=== PATIENT | female | born 1965 | race Caucasian/White ===

== ENCOUNTER 2016-07-25 02:50 | Emergency (ER) | payer OTHER ==
[~2016-07-25] VITALS: Ht 165.1 cm; Wt 72.5 kg
[~2016-07-25 02:50] MED LIST: IBUP-40 PO
[2016-07-25 02:53] VITALS: Ht 165.1 cm; Wt 72.5 kg
[2016-07-25] MEDS ORDERED: SOD CHLORIDE 0.9% 1,000 ML IV STA (03:29)
[2016-07-25] MEDS ORDERED: ONDANSETRON 4 MG INJ IV STA (03:29)
[2016-07-25] MEDS ORDERED: HYDROmorphONE 1 MG/ML SYG IV STA (03:29)
[2016-07-25 03:43] LABS: ADD SCAN DIFF NO
[2016-07-25 04:02] LABS: BASOPHILS % 0.7 % (0.0-2.0); EOSINOPHILS # 0.1 10^3/ul (0.0-0.5); HEMATOCRIT 38.3 % (37.0-47.0); HEMOGLOBIN 13.6 g/dl (12.0-16.0); LYMPHOCYTES # 2.1 10^3/ul (0.8-2.9); LYMPHOCYTES % 34.8 % (15.0-51.0); MEAN CORPUSCULAR HEMOGLOBIN 31.1 pg (29.0-33.0); MEAN CORPUSCULAR HGB CONC 35.5 g/dl (32.0-37.0); MEAN CORPUSCULAR VOLUME 87.4 fl (82.0-101.0); MEAN PLATELET VOLUME 9.9 fl (7.4-10.4); MONOCYTE # 0.5 10^3/ul (0.3-0.9); MONOCYTES % 7.8 % (0.0-11.0); NEUTROPHIL # 3.4 10^3/ul (1.6-7.5); NEUTROPHILS % 54.5 % (39.0-77.0); PLATELET COUNT 202 10^3/UL (140-415); RED BLOOD COUNT 4.38 10^6/ul (4.20-5.40); RED CELL DISTRIBUTION WIDTH 11.7 % (11.5-14.5); WHITE BLOOD COUNT 6.2 10^3/ul (4.8-10.8)
[2016-07-25 04:09] LABS: ALBUMIN 4.4 g/dl (3.3-4.9); ALBUMIN/GLOBULIN RATIO 1.46; BILIRUBIN,INDIRECT 0.2 mg/dl (0-1.1); BILIRUBIN,TOTAL 0.2 mg/dl (0.2-1.3); CALCIUM 9.5 mg/dl (8.4-10.2); CREATININE 0.56 mg/dl (0.44-1.00); POTASSIUM 3.3 mmol/L (3.5-5.1); TOTAL PROTEIN 7.4 g/dl (6.1-8.1)
--- NOTE | 2016-07-25 04:53 | RADRPT ---
PROCEDURE: US abdomen limited right upper quadrant. CLINICAL INDICATION: Abdominal pain TECHNIQUE: Multiple real-time images were acquired of the patient's right upper quadrant of the [facility] utilizing a high resolution transducer. COMPARISON: None FINDINGS: Multiple gallstones are seen in the gallbladder including in the gallbladder neck region. There is no pericholecystic fluid or gallbladder wall thickening. The common bile duct measures 3.6 mm in maximal dimension. No free fluid is identified. No abnormality is seen in the liver. The pancreas is not seen due to b owel gas. The right kidney measures 10.5 cm in length and is unremarkable. IMPRESSION: Pancreas not seen. Cholelithiasis with multiple gallstones in the gallbladder including in the gallb ladder neck region. RPTAT: HJES .Bryson Dodge MD, Date Time Electronically viewed and signed by .Bryson Dodge MD, on 07/25/2016 04:53 .S/
[2016-07-25] MEDS ORDERED: HYDR-902 PO (05:26)
[2016-07-25] MEDS ORDERED: DICY10CA60 PO (05:26)
[2016-07-25] MEDS ORDERED: ONDA4TAB14 PO (05:26)
--- NOTE | 2016-07-25 05:28 | ERD ---
ER Documentation Chief Complaint Date/Time DATE: 07/25/16 TIME: 05:27 Chief Complaint abd pain x 2days HPI This is a 50-year-old female complains of right upper quadrant pain. The patient says she had a flareup yesterday that went away after about 10 minutes. She said she had another attack today about 2 hours prior to arrival described as a crampy pain in the right upper quadrant radiating to the right back with some nausea no vomiting no diarrhea. No chest pain no shortness of breath no fever. She does not have a history of gallstones that she knows of. Says nothing makes the pain worse or better. ROS All systems reviewed and are negative except as per history of present illness. Medications Home Meds Active Scripts Ondansetron (Ondansetron Odt) 4 Mg Tab.rapdis, 4 MG PO Q6H Y for NAUSEA AND/OR VOMITING, #10 TAB Prov:KONG TIAN DO 07/25/16 Dicyclomine Hcl* (Bentyl*) 10 Mg Capsule, 20 MG PO QID, #30 CAP Prov:KONG TIAN DO 07/25/16 Hydrocodone/Acetaminophen ([place] 10-325 Tablet) 1 Each Tablet, 1 TAB PO Q6H Y for PAIN, #20 TAB Prov:KONG TIAN DO 07/25/16 Discontinued Reported Medications Ibuprofen (Advil) 200 Mg Tablet, PO Q6 01/22/12 Allergies Allergies: Coded Allergies: No Known Drug Allergies (Verified Allergy, Mild, 01/22/12) PMhx/Soc Medical and Surgical Hx: pt denies Medical Hx, pt denies Surgical Hx History of Surgery: No Anesthesia Reaction: No Hx Neurological Disorder: No Hx Respiratory Disorders: No Hx Cardiac Disorders: No Hx Psychiatric Problems: No Hx Miscellaneous Medical Probl: No Hx Alcohol Use: No Hx Substance Use: No Hx Tobacco Use: No Smoking Status: Never smoker FmHx Family History: No coronary disease Physical Exam Vitals Vital Signs Date Time Temp Pulse Resp B/P Pulse Ox O2 Delivery O2 Flow Rate FiO2 07/25/16 03:52 63 17 138/66 100 Room Air 07/25/16 02:53 98.4 66 20 129/87 99 Physical Exam Const: Well-developed, well-nourished Head: Atraumatic, normocephalic Eyes: Normal Conjunctiva, PERRLA, EOMI, normal sclera, no nystagmus ENT: Normal External Ears, Nose and Mouth, moist mucus membranes. Neck: Full range of motion. No meningismus, no lymphadenopathy. Resp: Clear to auscultation bilaterally, no wheezing, rhonchi, rales Cardio: Regular rate and rhythm, no murmurs, S1 S2 present Abd: Soft, mild to moderate epigastric and right upper quadrant tenderness, non distended. Normal bowel sounds, no guarding or rebound, no pulsitile abdominal masses or bruits Skin: No petechiae or rashes, no ecchymosis , no maculopapular rash Back: No midline or flank tenderness Ext: No cyanosis, or edema, FROM x 4, normal inspection, neurovascularly intact x 4 Neur: Awake and alert, STR 5/5 x 4, sensation intact x 4, no focal findings, cerebellum intact Psych: Normal Mood and Affect Result Diagram: 07/25/16 0329 07/25/16 0329 Results 24 hrs Laboratory Tests Test 07/25/16 03:29 White Blood Count 6.210^3/ul Red Blood Count 4.3810^6/ul Hemoglobin 13.6g/dl Hematocrit 38.3% Mean Corpuscular Volume 87.4fl Mean Corpuscular Hemoglobin 31.1pg Mean Corpuscular Hemoglobin Concent 35.5g/dl Red Cell Distribution Width 11.7% Platelet Count 84779^3/UL Mean Platelet Volume 9.9fl Neutrophils % 54.5% Lymphocytes % 34.8% Monocytes % 7.8% Eosinophils % 2.0% Basophils % 0.7% Nucleated Red Blood Cells % 0.0/100WBC Neutrophils # 3.410^3/ul Lymphocytes # 2.110^3/ul Monocytes # 0.510^3/ul Eosinophils # 0.110^3/ul Basophils # 0.010^3/ul Nucleated Red Blood Cells # 0.010^3/ul Sodium Level 142mmol/L Potassium Level 3.3mmol/L Chloride Level 109mmol/L Carbon Dioxide Level 25mmol/L Anion Gap 11 Blood Urea Nitrogen 14mg/dl Creatinine 0.56mg/dl Glucose Level 137mg/dl Calcium Level 9.5mg/dl Total Bilirubin 0.2mg/dl Direct Bilirubin 0.00mg/dl Indirect Bilirubin 0.2mg/dl Aspartate Amino Transf (AST/SGOT) 35IU/L Alanine Aminotransferase (ALT/SGPT) 87IU/L Alkaline Phosphatase 79IU/L Total Protein 7.4g/dl Albumin 4.4g/dl Globulin 3.00g/dl Albumin/Globulin Ratio 1.46 Lipase 117U/L Current Medications Medications (Trade) Dose Ordered Sig/Jeannette Route PRN Reason Start Time Stop Time Status Last Admin Dose Admin Sodium Chloride (NS) 1,000 ml @ 1,000 mls/hr Q1H STAT IV 07/25/16 03:29 07/25/16 04:28 DC 07/25/16 03:35 Hydromorphone HCl (Dilaudid) 1 mg ONCE STAT IV 07/25/16 03:29 07/25/16 03:31 DC 07/25/16 03:35 Ondansetron HCl (Zofran Inj) 4 mg ONCE STAT IV 07/25/16 03:29 07/25/16 03:31 DC 07/25/16 03:35 Procedures/MDM PROCEDURE: US abdomen limited right upper quadrant. CLINICAL INDICATION: Abdominal pain TECHNIQUE: Multiple real-time images were acquired of the patient's right upper quadrant of the abdomen utilizing a high resolution transducer. COMPARISON: None FINDINGS: Multiple gallstones are seen in the gallbladder including in the gallbladder neck region. There is no pericholecystic fluid or gallbladder wall thickening. The common bile duct measures 3.6 mm in maximal dimension. No free fluid is identified. No abnormality is seen in the liver. The pancreas is not seen due to bowel gas. The right kidney measures 10.5 cm in length and is unremarkable. IMPRESSION: Pancreas not seen. Cholelithiasis with multiple gallstones in the gallbladder including in the gallbladder neck region. RPTAT: HJES .Bryson Dodge MD, Date Time Electronically viewed and signed by .Bryson Dodge MD, on 07/25/2016 04:53 .S/ CC: KONG TIAN DO Patient's laboratory evaluation is unremarkable. White count is normal, liver function tests are normal. No signs of cholecystitis on ultrasound. Discharge patient home with follow-up with general surgery, Christopher Jade Zofran ODT. Departure Diagnosis: Primary Impression: Gallstones Condition: Stable Patient Instructions: Gallstones Referrals: JERAMIE CRUZ M.D., APOSTOLOS A. DO July 25, 2016 05:28
[2016-07-25 05:44] VITALS: BP 122/74; PULSE 65; RESP 14; TEMP 98
== END 2016-07-25 05:44 | disposition home or self-care (01) ==
LOC: E/R 02:50
DX: K80.20 Calculus of gallbladder without cholecystitis without obstruction (principal); R11.0 Nausea
CPT/HCPCS: 36415; 76705; 80053; 83690; 85025; 96374; 96375; 99285; J1170; J2405; J7030